=== PATIENT | female | born 2000 | race Hispanic/Latino ===

== ENCOUNTER 2019-07-13 13:19 | Emergency (ER) | payer SELFPAY ==
[2019-07-13 13:29] VITALS: BP 112/62
--- NOTE | 2019-07-13 13:31 | Event Note ---
ED Screening Note ED Screening Note: pt presents for possible tampon stuck since yesterday at 8 PM no pain no discharge no pmhx no allergies to meds cycle started 07/08/19 This initial assessment/diagnostic orders/clinical plan/treatment(s) is/are subject to change based on patients health status, clinical progression and re-assessment by fellow clinical providers in the ED. Further treatment and workup at subsequent clinical providers discretion. Patient/guardian urged not to elope from the ED as their condition may be serious if not clinically assessed and managed.
--- NOTE | 2019-07-13 14:25 | Emergency Department Report ---
ED Female HPI - General Chief complaint: Urogenital-Female Stated complaint: TAMPON STUCK IN VAGINA Time Seen by Provider: 07/13/19 13:28 Source: patient Mode of arrival: Ambulatory Limitations: No Limitations - History of Present Illness Initial comments: Nadine is a healthy 18 yo female who presents with tampon stuck in her vagina since last night. She was unable to remove the tampon. She does not have discomfort or discharge. No fever. MD Complaint: other (foreign body) -: Last night Location: other (vaginal tampon) Severity: mild Improves with: none Worsens with: none Are you Now?: No Associated Symptoms: denies other symptoms - Related Data Allergies Allergy/AdvReac Type Severity Reaction Status Date / Time No Known Allergies Allergy Unverified 07/13/19 13:23 ED Review of Systems ROS: Stated complaint: TAMPON STUCK IN VAGINA Other details as noted in HPI Constitutional: denies: fever, malaise Gastrointestinal: denies: abdominal pain, nausea, vomiting Genitourinary: denies: urgency, dysuria, frequency ED Past Medical Hx - Past Medical History Previous Medical History?: No - Surgical History Past Surgical History?: No - Social History Smoking Status: Current Every Day Smoker Substance Use Type: Alcohol, Marijuana ED Physical Exam - General Limitations: No Limitations General appearance: alert, in no apparent distress - Head Head exam: Present: atraumatic, normocephalic - GI/Abdominal GI/Abdominal exam: Present: soft. Absent: distended, tenderness, guarding, rebound - External exam: Present: normal external exam Speculum exam: Present: normal speculum exam, foreign body (tampon). Absent: erythema, cervical discharge, vaginal bleeding, tissue, laceration ED Course Vital Signs 07/13/19 07/13/19 13:27 13:29 Temperature 97.1 F L Pulse Rate 96 H Respiratory 20 Rate Blood Pressure 112/62 O2 Sat by Pulse 92 Oximetry ED Medical Decision Making - Medical Decision Making Procedure note: Foreign body removal from the vagina Complications: None With chief of service guidance, my colleague Ms. Green was also in the room for supervision. Patient gave verbal informed consent for speculum exam and foreign body removal. On speculum exam was able to visualize tampon just inferior to the cervix I used ring forceps to easily remove the tampon. No bleeding or discharge seen. Patient was given return precautions and further instructions on tampon use. Critical care attestation.: If time is entered above; I have spent that time in minutes in the direct care of this critically ill patient, excluding procedure time. ED Disposition Clinical Impression: Retained vaginal foreign body, Retained tampon Disposition: DC-01 TO HOME OR SELFCARE Is pt being admited?: No Does the pt Need Aspirin: No Condition: Stable Instructions: Vaginal Foreign Body (ED) Referrals: JT ESPOSITO MD [Staff Physician] - as needed
== END 2019-07-13 14:38 | disposition home or self-care (01) ==
LOC: ED 13:19
DX: T19.2XXA Foreign body in vulva and vagina, initial encounter (principal); F17.200 Nicotine dependence, unspecified, uncomplicated; F12.10 Cannabis abuse, uncomplicated; X58.XXXA Exposure to other specified factors, initial encounter; Y93.89 Activity, other specified; Y92.89 Other specified places as the place of occurrence of the external cause; Y99.8 Other external cause status

== ENCOUNTER 2021-01-22 08:09 | Emergency (ER) | payer SELFPAY | END 2021-01-22 10:51 | disposition left against medical advice (07) | LOC: ED 08:09 | DX: N93.9 Abnormal uterine and vaginal bleeding, unspecified (principal); Z53.21 Procedure and treatment not carried out due to patient leaving prior to being seen by health care provider ==